=== PATIENT | female | born 1985 | race Caucasian/White ===

== ENCOUNTER 2021-01-28 13:31 | Emergency (ER) | payer SELFPAY ==
[2021-01-28 13:32] VITALS: BP 130/100; PULSE 101; RESP 18; TEMP 36.8; O2SAT 97; BMI 23.6
--- NOTE | 2021-01-28 13:47 | CT_ITS ---
PROCEDURE: CT HEAD/BRAIN WO CON CLINICAL INDICATION: fall, seizure COMPARISON: No exams were available for comparison TECHNIQUE: Axial images obtained. All CT scans at the facility use one or more dose reduction, viz: automated exposure control, ma/kV adjustment per patient size (including targeted exams where dose is matched to indication, i.e. head), or iterative reconstruction technique. FINDINGS: No midline shift, mass effect, intracranial hemorrhage, hydrocephalus, or extra-axial fluid collection is evident. The calvarium has an unremarkable appearance. No mastoid effusion. No sinus air-fluid level. IMPRESSION: No acute intracranial finding Dictated by: Colin Byrd MD 01/28/2021 15:03 Colin Byrd MD in [place] 01/28/2021 15:03
--- NOTE | 2021-01-28 13:48 | HMH.EDGENADL ---
ED Disposition Clinical Impression: Seizure-like activity Chin laceration Qualifiers: Encounter type: initial encounter Qualified Code(s): S01.81XA - Laceration without foreign body of other part of head, initial encounter Qualifiers: Weeks of gestation: unspecified Qualified Code(s): Z34.90 - Encounter for supervision of normal , unspecified, unspecified trimester Disposition: Home, Self-Care Condition on Discharge: Good Additional Instructions: Additional instructions for FACIAL LACERATION: Clean the wound daily with soap and water. You may shower. Apply a thin film of antibiotic ointment such as neosporin or triple antibiotic after showering. Avoid submerging the wound, no swimming. See your primary care physician or return to the [facility] in 5 days for suture removal. The [facility] is open 9AM to 9 PM, 7 days a week. Return if any signs of infection including increasing pain, pus drainage, swelling, redness, red streaks, or fever. Additional instructions for SEIZURE OR LOSS OF CONSCIOUSNESS/POSSIBLE SEIZURE: NO DRIVING, BIKE RIDING, SWIMMING, TUB BATHING, LADDERS UNTIL CLEARED BY DOCTOR. RETURN IF SEIZURE RECURS. NO ALCOHOL OR STREET DRUGS. See your physician as soon as possible for follow-up. Return to the emergency department if seizure recurs. 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 No drug or alcohol use. Referrals: Provider,MD Davin [Primary Care Provider] - Caitlyn Archibald MD [Staff Physician] - - Critical Care Critical Care Time: No Attestation: On 01/28/21, the high probability of a clinically significant, sudden or life threatening deterioration of the following system(s) required my full and direct attention, intervention and personal management. The time I documented below is in addition to time spent performing reported procedures but includes the following listed in this critical care notation. Medical Decision Making - Wayne Inquiry Pt receiving controlled substance: No Vital Signs: 01/28/21 13:32 Temperature 98.3 F Temperature Source Oral Pulse Rate [Right] 101 H Respiratory Rate 18 Blood Pressure [Right Arm] 130/100 H Blood Pressure Mean [Right Arm] 110 02 Sat by Pulse Oximetry 97 Oxygen Delivery Method Room Air - Lab Data Lab Results 01/28/21 14:30: WBC 11.5 H, RBC 4.12 L, Hgb 11.3 L, Hct 34.3 L, MCV 83.1, MCH 27.5, MCHC 33.1, RDW 16.7, Plt Count 286, MPV 8.0, Neut % (Auto) 81.4 H, Lymph % (Auto) 12.9, [place] % (Auto) 4.7, Eos % (Auto) 0.8, Baso % (Auto) 0.3, Neut # (Auto) 9.4 H, Lymph # (Auto) 1.5, [place] # (Auto) 0.5, Eos # (Auto) 0.1, Baso # (Auto) 0.0 01/28/21 14:30: Sodium 136, Potassium 3.1 L, Chloride 106, Carbon Dioxide 24, Anion Gap 9.1, BUN 6 L, Creatinine 0.60, Estimated Creat Clear 156, Estimated GFR 114, Est GFR ( Amer) 138, Glucose 106 H, Calcium 8.4, Total Bilirubin 0.4, AST 23, ALT 12, Alkaline Phosphatase 117, Total Protein 6.7, Albumin 3.6, Globulin 3.1, Albumin/Globulin Ratio 1.2 01/28/21 14:42: Urine HCG, Qual Positive 01/28/21 14:42: Urine Opiates Screen Negative, Urine Methadone Screen Negative, Ur Barbituates Screen Negative, Ur Phencyclidine Scrn Negative, Ur Amphetamines Screen Negative, U Benzodiazepines Scrn Negative, Urine Cocaine Screen Negative, U Marijuana (THC) Screen Positive H Result diagrams: 01/28/21 14:30 01/28/21 14:30 Orders (Tests/Meds): ED MEDICATIONS Discontinued Medications Generic Name Dose Route Start Last Admin Trade Name Billy PRN Reason Stop Dose Admin Lidocaine/Epinephrine 10 ml 01/28/21 13:48 01/28/21 14:52 Lidocaine 2% W/Epi 1:100,000 20ml Vial IJ 01/28/21 13:49 5 ml ONCE ONE Administration Potassium Chloride 40 meq 01/28/21 15:30 Potassium Chloride 20meq Tab PO 01/28/21 15:31 ONCE ONE Tetanus/Reduced Diphtheria/Acell Pertussis 0.5 ml 01/28/21 13:48 01/28/21 14:55 Tet/Diphth/Pert-Adult 0.5ml [place]
--- NOTE | 2021-01-28 14:39 | PC.NURSE ---
Pt's father called for update upon her arrival. Tristan Rucker - [phone]
[2021-01-28 14:40] LABS: Basophils % 0.3 % (0.1-2.0); Eosinophils # 0.1 K/mm3 (0.0-0.4); Eosinophils % 0.8 % (0.1-12.0); Hematocrit 34.3 % (37.0-47.0); Hemoglobin 11.3 g/dL (12.2-16.2); Lymphocytes # 1.5 K/mm3 (0.7-4.5); Lymphocytes % 12.9 % (10-50); Mean Corpuscular HGB Conc 33.1 g/dL (31.8-35.4); Mean Corpuscular Hemoglobin 27.5 pg (27.0-31.2); Mean Corpuscular Volume 83.1 fl (81-99); Monocytes # 0.5 K/mm3 (0.1-1.0); Monocytes % 4.7 % (1.7-9.3); Neutrophils # 9.4 K/mm3 (1.8-7.8); Neutrophils % 81.4 % (37.0-80.0); Platelet Count 286 K/mm3 (142-424); Red Blood Count 4.12 M/mm3 (4.20-5.40); Red Cell Distribution Width 16.7 % (11.5-17.5); White Blood Count 11.5 K/mm3 (4.8-10.8)
--- NOTE | 2021-01-28 14:42 | PC.NURSE ---
at bedside suturing.
[2021-01-28 14:47] LABS: Chloride 106 mmol/L (98-107); Potassium 3.1 mmoL/L (3.5-5.1); Sodium 136 mmol/L (136-145)
[2021-01-28 14:49] LABS: Blood Urea Nitrogen 6 mg/dl (7-17); Creatinine Clearance Estimated 156 mL/min (50-200); Estimated Glomerular Filt Rate 114 ml/min (>60); GFR (African American) 138 ML/MIN (>60)
[2021-01-28 14:50] LABS: Alanine Aminotransferase 12 U/L (12-78); Albumin Level 3.6 g/dl (3.5-5.0); Albumin/Globulin Ratio 1.2 (1.1-1.8); Alkaline Phosphatase 117 U/L (38-126); Anion Gap 9.1 mEq/L (5-15); Aspartate Amino Transferase 23 U/L (14-36); Bilirubin,Total 0.4 mg/dl (0.2-1.3); Calcium 8.4 mg/dl (8.4-10.2); Carbon Dioxide 24 mmol/L (22.0-30.0); Globulin 3.1 g/dL (1.3-3.2); Glucose 106 mg/dl (74-100); Total Protein,Serum 6.7 g/dl (6.3-8.2)
[2021-01-28 15:21] LABS: Urine Pregnancy, HCG Qual. Positive (Negative)
[2021-01-28 15:24] LABS: Barbiturates Screen,Urine Negative ng/ml (<200)
[2021-01-28 15:25] LABS: Amphetamine/Metha Screen,Urine Negative ng/ml (<1000); Benzodiazepines Screen,Urine Negative ng/ml (<200)
[2021-01-28 15:26] LABS: Methadone Screen,Urine Negative ng/ml (<300)
[2021-01-28 15:27] LABS: Cannabinoid Screen,Urine Positive ng/ml (<50); Cocaine Screen,Urine Negative ng/ml (<300)
[2021-01-28 15:28] LABS: Opiate Screen,Urine Negative ng/ml (<300)
[2021-01-28 15:29] LABS: Phencyclidine Screen,Urine Negative ng/ml (<25)
[2021-01-28 15:50] VITALS: BP 155/61; PULSE 87; RESP 17; TEMP 36.9; O2SAT 98
== END 2021-01-28 16:00 | disposition home or self-care (01) ==
PROVIDERS: Emergency Provider Emergency Medicine
DX: G40.909 Epilepsy, unspecified, not intractable, without status epilepticus (principal); S01.81XA Laceration without foreign body of other part of head, initial encounter; Z32.01 Encounter for pregnancy test, result positive; Z23 Encounter for immunization; W18.39XA Other fall on same level, initial encounter; Y92.89 Other specified places as the place of occurrence of the external cause
CPT/HCPCS: 12013; 70450; 80053; 80305; 81025; 85025; 90715; 99283

== ENCOUNTER 2021-01-29 02:12 | Emergency (ER) | payer SELFPAY ==
[2021-01-29] VITALS (7 sets, daily range): BP systolic 115–142; BP diastolic 68–95; PULSE 94–109; RESP 15–21; TEMP 36.8; O2SAT 97–100; BMI 23.6
--- NOTE | 2021-01-29 02:24 | ECG_ITS ---
APPROVED REPORT Exam: Resting ECG HR:107 bpm ECG Measurements Heart Rate 107 AXES NM 120 P 69 QRSd 86 QRS 80 QT 372 T 39 QTc 496 Conclusion Sinus tachycardia Biatrial enlargement T wave abnormality, consider inferior ischemia Abnormal ECG Electronically signed by : Jovanny Velasquez MD 01/29/2021 11:44:14
[2021-01-29 02:29] LABS: Microscopic, Urine URINE MICROSCOPIC (MICROSCOPIC)
[2021-01-29 02:35] LABS: Basophils # 0.1 K/mm3 (0-0.2); Basophils % 0.4 % (0.1-2.0); Eosinophils # 0.2 K/mm3 (0.0-0.4); Eosinophils % 1.1 % (0.1-12.0); Hemoglobin 12.3 g/dL (12.2-16.2); Lymphocytes # 3.5 K/mm3 (0.7-4.5); Lymphocytes % 21.8 % (10-50); Mean Corpuscular HGB Conc 32.3 g/dL (31.8-35.4); Mean Corpuscular Hemoglobin 27.3 pg (27.0-31.2); Mean Corpuscular Volume 84.4 fl (81-99); Mean Platelet Volume 8.7 fl (7.4-10.4); Monocytes % 6.1 % (1.7-9.3); Neutrophils # 11.1 K/mm3 (1.8-7.8); Neutrophils % 70.5 % (37.0-80.0); Platelet Count 333 K/mm3 (142-424); Red Blood Count 4.51 M/mm3 (4.20-5.40); Red Cell Distribution Width 16.6 % (11.5-17.5); White Blood Count 15.8 K/mm3 (4.8-10.8)
[2021-01-29 02:37] LABS: MANUAL DIFFERENTIAL MANUAL DIFFERENTIAL (MANUAL DIFF)
[2021-01-29 02:47] LABS: Acetaminophen 25 ug/ml (10-30)
[2021-01-29 02:48] LABS: Alanine Aminotransferase 17 U/L (12-78); Albumin/Globulin Ratio 1.3 (1.1-1.8); Alkaline Phosphatase 123 U/L (38-126); Anion Gap 11.4 mEq/L (5-15); Aspartate Amino Transferase 29 U/L (14-36); Bilirubin,Total 0.5 mg/dl (0.2-1.3); Blood Urea Nitrogen 10 mg/dl (7-17); Calcium 8.6 mg/dl (8.4-10.2); Carbon Dioxide 25 mmol/L (22.0-30.0); Chloride 105 mmol/L (98-107); Creatinine Clearance Estimated 156 mL/min (50-200); Estimated Glomerular Filt Rate 114 ml/min (>60); GFR (African American) 138 ML/MIN (>60); Globulin 3.1 g/dL (1.3-3.2); Glucose 86 mg/dl (74-100); Potassium 3.4 mmoL/L (3.5-5.1); Sodium 138 mmol/L (136-145); Total Protein,Serum 7.1 g/dl (6.3-8.2); Urine Pregnancy, HCG Qual. Positive (Negative)
[2021-01-29 02:49] LABS: Salicylate < 1.0 mg/dL (2.0-20.0)
[2021-01-29 02:51] LABS: Appearance,Urine CLEAR (Clear); Bilirubin,Urine Negative (Negative); Blood, Urine Negative (Negative); Color,Urine YELLOW (Yellow); Glucose,Urine (UA) Negative (Negative); Ketones,Urine Negative (Negative); Leukocyte Esterase,Urine Negative (Negative); Nitrate,Urine Negative (Negative); Protein,Urine Negative (Negative); Specific Gravity, Urine 1.015 (1.005-1.030); Urobilinogen,Urine 0.2 EU/dl (0.2)
[2021-01-29 02:54] LABS: Magnesium 1.8 mg/dl (1.6-2.3)
[2021-01-29 02:56] LABS: Benzodiazepines Screen,Urine Negative ng/ml (<200)
[2021-01-29 02:57] LABS: Amphetamine/Metha Screen,Urine Negative ng/ml (<1000)
[2021-01-29 02:58] LABS: Barbiturates Screen,Urine Negative ng/ml (<200); Methadone Screen,Urine Negative ng/ml (<300)
[2021-01-29 02:59] LABS: Cannabinoid Screen,Urine Positive ng/ml (<50)
[2021-01-29 03:00] LABS: Cocaine Screen,Urine Negative ng/ml (<300); Opiate Screen,Urine Negative ng/ml (<300)
--- NOTE | 2021-01-29 03:00 | HMH.EDSEIZ ---
ED Disposition Clinical Impression: Epileptic seizure Qualifiers: Epilepsy type: unspecified Intractability: not intractable Status epilepticus: without status epilepticus Qualified Code(s): G40.909 - Epilepsy, unspecified, not intractable, without status epilepticus Qualifiers: Weeks of gestation: less than 8 weeks Qualified Code(s): Z3A.01 - Less than 8 weeks gestation of Disposition: Home, Self-Care Condition on Discharge: Good Instructions: DI for Seizure Disorder -- Adult Additional Instructions: see neuro and pcp for follow up Referrals: Provider,MD Davin [Primary Care Provider] - Yareli Casiano MD [Staff Physician] - Caitlyn Archibald MD [Staff Physician] - - Critical Care Critical Care Time: No Attestation: On 01/29/21, the high probability of a clinically significant, sudden or life threatening deterioration of the following system(s) required my full and direct attention, intervention and personal management. The time I documented below is in addition to time spent performing reported procedures but includes the following listed in this critical care notation. Medical Decision Making - Medical Records Medical records reviewed: Yes: I reviewed the patient's medical records. - Wayne Inquiry Pt receiving controlled substance: No Vital Signs: 01/29/21 02:11 01/29/21 02:30 01/29/21 03:00 Temperature 98.2 F Temperature Source Oral Pulse Rate 100 H 98 H Pulse Rate [Left Radial] 109 H Respiratory Rate 17 21 21 Blood Pressure 119/90 115/85 Blood Pressure [Right Arm] 139/82 Blood Pressure Mean [Right Arm] 101 Blood Pressure Source [Right Arm] Automatic Cuff Blood Pressure Position [Right Arm] Sitting 02 Sat by Pulse Oximetry 100 99 99 Oxygen Delivery Method Room Air Room Air Room Air - Lab Data Lab results reviewed: Yes: I reviewed the patient's lab results. Lab Results 01/29/21 02:25: Urine Color Yellow, Urine Appearance Clear, Urine pH 6.0, Ur Specific [place]orman 1.015, Urine Protein Negative, Urine Glucose (UA) Negative, Urine Ketones Negative, Urine Blood Negative, Urine Nitrate Negative, Urine Bilirubin Negative, Urine Urobilinogen 0.2, Ur Leukocyte Esterase Negative, Urine WBC Occasional, Ur Squamous Epith Cells 3-5, Urine Bacteria Trace, Urine Mucus Trace 01/29/21 02:25: WBC 15.8 H D, RBC 4.51, Hgb 12.3, Hct 38.0, MCV 84.4, MCH 27.3, MCHC 32.3, RDW 16.6, Plt Count 333, MPV 8.7, Neut % (Auto) 70.5, Lymph % (Auto) 21.8, [place] % (Auto) 6.1, Eos % (Auto) 1.1, Baso % (Auto) 0.4, Neut # (Auto) 11.1 H, Lymph # (Auto) 3.5, [place] # (Auto) 1.0, Eos # (Auto) 0.2, Baso # (Auto) 0.1, Total Counted 100, Neutrophils % (Manual) 64, Lymphocytes % (Manual) 28, Monocytes % (Manual) 4, Eosinophils % (Manual) 4 H, Platelet Estimate Normal, RBC Morphology Normal 01/29/21 02:25: Urine HCG, Qual Positive 01/29/21 02:25: Sodium 138, Potassium 3.4 L, Chloride 105, Carbon Dioxide 25, Anion Gap 11.4, BUN 10 D, Creatinine 0.60, Estimated Creat Clear 156, Estimated GFR 114, Est GFR ( Amer) 138, Glucose 86, Calcium 8.6, Total Bilirubin 0.5, AST 29 D, ALT 17 D, Alkaline Phosphatase 123, Total Protein 7.1, Albumin 4.0 D, Globulin 3.1, Albumin/Globulin Ratio 1.3 01/29/21 02:25: HCG, Quant 1029 H, Salicylates < 1.0 L, Acetaminophen 25 01/29/21 02:25: Urine Opiates Screen Negative, Urine Methadone Screen Negative, Ur Barbituates Screen Negative, Ur Phencyclidine Scrn Negative, Ur Amphetamines Screen Negative, U Benzodiazepines Scrn Negative, Urine Cocaine Screen Negative, U Marijuana (THC) Screen Positive H 01/29/21 02:30: Magnesium 1.8 Result diagrams: 01/29/21 02:25 01/29/21 02:25 Orders (Tests/Meds): ED MEDICATIONS Generic Name Dose Route Start Last Admin Trade Name Freq PRN Reason Stop Dose Admin Sodium Chloride 1,000 mls @ 999 mls/hr 01/29/21 02:30 01/29/21 02:36 Sod Chlor 0.9% 1000ml Bag IV 01/29/21 03:30 999 mls/hr .Q1H1M ESTEFANIA Administration - ECG Data Tr
[2021-01-29 03:01] LABS: Bacteria,Urine Trace /lpf; Mucus,Urine Trace /lpf; Phencyclidine Screen,Urine Negative ng/ml (<25); WBC,Urine Occasional #/hpf (0-3)
[2021-01-29 03:05] LABS: HCG,Quantitative 1029 mIU/ml (0-5.42)
[2021-01-29 04:21] LABS: Eosinophils % 4 % (0-3); Lymphocytes % 28 % (10-50); Monocytes % 4 % (2-9); Neutrophils % 64 % (42-76); Total Cells Counted 100
[2021-01-29 04:22] LABS: Platelet Estimate Normal; RBC Morphology Normal
== END 2021-01-29 05:28 | disposition home or self-care (01) ==
PROVIDERS: Emergency Provider Emergency Medicine
DX: G40.909 Epilepsy, unspecified, not intractable, without status epilepticus (principal); Z3A.01 Less than 8 weeks gestation of pregnancy
CPT/HCPCS: 80053; 80305; 80329; 81001; 81025; 83735; 84702; 85007; 85025; 93005; 96365; 99283

== ENCOUNTER 2021-01-29 10:14 | Emergency (ER) | payer SELFPAY ==
[2021-01-29 10:15] VITALS: BP 128/87; PULSE 123; RESP 24; TEMP 36.7; O2SAT 99; BMI 23.6
[2021-01-29 11:06] LABS: Anion Gap 12.3 mEq/L (5-15); Blood Urea Nitrogen 12 mg/dl (7-17); Calcium 8.7 mg/dl (8.4-10.2); Carbon Dioxide 23 mmol/L (22.0-30.0); Chloride 107 mmol/L (98-107); Creatinine Clearance Estimated 156 mL/min (50-200); Estimated Glomerular Filt Rate 114 ml/min (>60); GFR (African American) 138 ML/MIN (>60); Glucose 54 mg/dl (74-100); Magnesium 1.7 mg/dl (1.6-2.3); Potassium 3.3 mmoL/L (3.5-5.1); Sodium 139 mmol/L (136-145)
[2021-01-29 11:23] LABS: HCG,Quantitative 1155 mIU/ml (0-5.42)
[2021-01-29 11:26] LABS: Basophils # 0.1 K/mm3 (0-0.2); Basophils % 0.4 % (0.1-2.0); Eosinophils # 0.1 K/mm3 (0.0-0.4); Eosinophils % 0.9 % (0.1-12.0); Lymphocytes # 1.7 K/mm3 (0.7-4.5); Lymphocytes % 11.5 % (10-50); Mean Corpuscular HGB Conc 33.3 g/dL (31.8-35.4); Mean Corpuscular Hemoglobin 27.6 pg (27.0-31.2); Mean Corpuscular Volume 82.8 fl (81-99); Mean Platelet Volume 8.4 fl (7.4-10.4); Monocytes # 0.6 K/mm3 (0.1-1.0); Monocytes % 4.3 % (1.7-9.3); Neutrophils # 12.2 K/mm3 (1.8-7.8); Neutrophils % 82.9 % (37.0-80.0); Platelet Count 294 K/mm3 (142-424); Red Blood Count 4.35 M/mm3 (4.20-5.40); Red Cell Distribution Width 16.7 % (11.5-17.5); White Blood Count 14.7 K/mm3 (4.8-10.8)
--- NOTE | 2021-01-29 11:45 | PC.NURSE ---
Caitlyn Cotto at bedside
--- NOTE | 2021-01-29 11:56 | PC.NURSE ---
Caitlyn Cotto states that she will have a follow up appt scheduled for pt in her office.
[2021-01-29 12:10] LABS: POC Glucose,Bedside 127 (70-110)
--- NOTE | 2021-01-29 12:12 | HMH.EDGENADL ---
ED Disposition Clinical Impression: Anxiety Disposition: Home, Self-Care Condition on Discharge: Good Instructions: DI for Seizure (Not Epilepsy/Seizure Disorder), DI for Seizure Disorder -- Adult, DI for Seizure Disorder -- Child Additional Instructions: Follow-up with your primary care physician within the next few days. Return to the emergency department should you have any repeat episodes or any other concerns within the next day - Critical Care Critical Care Time: No Attestation: On , the high probability of a clinically significant, sudden or life threatening deterioration of the following system(s) required my full and direct attention, intervention and personal management. The time I documented below is in addition to time spent performing reported procedures but includes the following listed in this critical care notation. Medical Decision Making - Medical Records Medical records reviewed: Yes: I reviewed the patient's medical records. - Wayne Inquiry Pt receiving controlled substance: No Vital Signs: 01/29/21 10:15 Temperature 98.1 F Temperature Source Oral Pulse Rate [Right Radial] 123 H Respiratory Rate 24 Blood Pressure [Right Arm] 128/87 Blood Pressure Mean [Right Arm] 100 Blood Pressure Source [Right Arm] Automatic Cuff Blood Pressure Position [Right Arm] Sitting 02 Sat by Pulse Oximetry 99 Oxygen Delivery Method Room Air - Lab Data Lab Results 01/29/21 10:50: WBC 14.7 H, RBC 4.35, Hgb 12.0 L, Hct 36.0 L, MCV 82.8, MCH 27.6, MCHC 33.3, RDW 16.7, Plt Count 294, MPV 8.4, Neut % (Auto) 82.9 H, Lymph % (Auto) 11.5, [place] % (Auto) 4.3, Eos % (Auto) 0.9, Baso % (Auto) 0.4, Neut # (Auto) 12.2 H, Lymph # (Auto) 1.7, [place] # (Auto) 0.6, Eos # (Auto) 0.1, Baso # (Auto) 0.1 01/29/21 10:50: Sodium 139, Potassium 3.3 L, Chloride 107, Carbon Dioxide 23, Anion Gap 12.3, BUN 12, Creatinine 0.60, Estimated Creat Clear 156, Estimated GFR 114, Est GFR ( Amer) 138, Glucose 54 L D, Calcium 8.7, Magnesium 1.7, TSH 2.80, HCG, Quant 1155 H 01/29/21 12:02: POC Glucose 127 H Result diagrams: 01/29/21 10:50 01/29/21 10:50 Orders (Tests/Meds): ED MEDICATIONS Discontinued Medications Generic Name Dose Route Start Last Admin Trade Name Billy PRN Reason Stop Dose Admin Sodium Chloride 1,000 mls @ 999 mls/hr 01/29/21 10:30 01/29/21 10:46 Sod Chlor 0.9% 1000ml Bag IV 01/29/21 11:30 999 mls/hr .Q1H1M ESTEFANIA Administration Medical Decision Narrative: 35-year-old female presents with episode as above. It does not appear to be epilepsy based on symptoms. CT of the head was recently negative. She thinks that this is stress related. We had a psychology consultation and they have given her outpatient recommendations as well as recommendation to restart Zoloft. From a perspective she is stable. No indication that there is emergent pathology at this time. Laboratory evaluation was otherwise unremarkable. Plan to discharge with return precautions. She did have low blood sugar initially it improved with a diet here. Plan to follow-up for this no indication at this time for further management General Adult HPI - General Chief complaint: Seizure Stated complaint: seizure Time Seen by Provider: 01/29/21 10:15 Mode of Arrival: EMS Limitations: No Limitations Description of Symptoms (Recalled from ER Triage Doc. by RN): Pt reports that she experienced another seizure-like episode this AM after returning home from her ED visit yesterday. Pt states that she is awake and remembers the episodes vividly. Describes them as an out of body experience . Pt has bruise to rt eyelid. Pt denies any pain or symptoms at this time. - History of Present Illness HPI narrative: 35 yo F presents for the 3rd day for seizure-like episodes. This time she had event where she felt weak and shaking however she was able to call out during the episode and had no confusion afterward. She did not bite
[2021-01-29 12:25] VITALS: BP 131/70; PULSE 111; RESP 20; TEMP 36.7; O2SAT 99
--- NOTE | 2021-01-30 14:46 | P.CONS_ITS ---
*Admission Date: 01/29/21 *Reason for consult:: mental health *History of present illness: LATE ENTRY NOTE FOR 01/29/2021 I interviewed patient at bedside. She is alone. alert and oriented X4. She states that she just came down here from [place]. That she is here to help her dad out some; he has been sick. She states that back in october 2020 she was in the hospital for stomach issues; and they started her on Zoloft at that time. She states that since she moved down here last week; that she has been out of other medicines. She admits to smoking cannabis; but no other drugs noted. -denies that she does any synthetics She states that she also just found out she is . -she has 1 son at home; he is 7 years old -he lives with her mom -in [place] -this is also where her boyfriend of 10 years is -this is the father of her children -she states that she knows that she needs to see someone here for her mental issues -she needs CBT -cause she does a lot of negative self talk -she has been diagnosed with PTSD in the past -she states that she is always anxious and on edge -they only have 1 car so this stresses her out -cause sometimes she can't leave; or she feels she is in a hurry all the time -she also doesn't want to make her boyfriend angry -states that she never knows what kind of mood he will be in -she states that she woke up today feeling groggy -that she saw her son's paanthonymas sitting by her -and she felt that he was next to her -she states that she was talking to him and there was nobody there -so her family got worried and brought her to the ER -she has struggle with drug addiction in the past; NORCO -but got off of this and onto suboxone; then off of the suboxone from a clinic in 2018 She states that she feels she is okay to go home. -but would like to restart her zoloft -she is also willing to come back to the specialty clinic to see me on an outpatient basis to continue to monitor her. RECOMMENDATIONS: 1. Discharge home. 2. Encouraged not to smoke; it is unknown if she obtained any synthetics. -she is very fidgety -cannot sit still in the bed today 3. Restart Zoloft 50mg daily until her appointment 4. Schedule an appointment with Specialty clinic for 2-3 weeks. TIME IN: 1130 TIME OUT: 1200 [facility] History *Have you ever received a pneumonia vaccine?: No *Have you received a flu vaccine this season?: No - *Social History Smoking Status: Never smoker Alcohol Intake: current Alcohol Intake Frequency:: holidays/special occasions only Substance Use Type: marijuana *Occupational Status:: other *Travel in the last 8 weeks: None Family Hx:: Unable to obtain Review of Systems - *Neurologic Denies abnormal hearing, Denies dizziness, Denies headache(s), Denies numbness Meds Home Medications Medication Instructions Recorded Confirmed Type No Known Home Medications 01/29/21 01/29/21 History Allergies Allergy/AdvReac Type Severity Reaction Status Date / Time No Known Allergies Allergy Verified 01/28/21 14:01
== END 2021-01-29 12:25 | disposition home or self-care (01) ==
PROVIDERS: Emergency Provider Emergency Medicine
DX: G40.909 Epilepsy, unspecified, not intractable, without status epilepticus (principal); Z3A.01 Less than 8 weeks gestation of pregnancy; F41.9 Anxiety disorder, unspecified
CPT/HCPCS: 80048; 82962; 83735; 84443; 84702; 85025; 96365; 99282

== ENCOUNTER 2021-02-06 16:37 | Emergency (ER) | payer OTHER, SELFPAY ==
[2021-02-06 16:59] VITALS: BP 124/92; PULSE 108; RESP 18; TEMP 36.7; O2SAT 100
[2021-02-06 17:01] VITALS: BP 124/92; PULSE 108; RESP 18; TEMP 36.7; O2SAT 100
== END 2021-02-06 17:02 | disposition home or self-care (01) ==
LOC: UTC 16:45
PROVIDERS: Emergency Provider Nurse Practitioner
DX: S01.81XD Laceration without foreign body of other part of head, subsequent encounter (principal)